=== PATIENT | male | born 1950 | race Caucasian/White ===

== ENCOUNTER → 2019-10-14 | Outpatient (CLI) | payer OTHER ==
[2019-10-14 09:54] LABS: HEMATOCRIT 37.2 % (42.0-52.0); HEMOGLOBIN 12.7 gm/dL (14.0-18.0); MCH 30.3 pg (26.0-34.0); MCHC 34.2 g/dL (28.0-37.0); MCV 88.8 fL (80.0-100.0); MPV 6.6 fl. (7.2-11.1); RBC 4.19 mil/uL (4.50-6.00); RDW-CV 13.5 % (10.5-14.5); WBC 10.1 thou/uL (4.0-11.0)
[2019-10-14 10:04] LABS: CALCIUM 8.6 mg/dL (8.5-10.1); CREATININE 0.9 mg/dL (0.6-1.3); POTASSIUM 4.6 mmol/L (3.5-5.1)
[2019-10-15 02:06] LABS: GLYCOHEMOGLOBIN (HGB A1C) 6.4 % (4.8-5.6)
== END ==
LOC: M.WC 02:25
PROVIDERS: Surgery
DX: L89.893 Pressure ulcer of other site, stage 3 (principal); L03.031 Cellulitis of right toe; G60.3 Idiopathic progressive neuropathy; E66.9 Obesity, unspecified; I48.21 Permanent atrial fibrillation; I10 Essential (primary) hypertension; I48.91 Unspecified atrial fibrillation; J43.9 Emphysema, unspecified; M19.90 Unspecified osteoarthritis, unspecified site; Z95.5 Presence of coronary angioplasty implant and graft; Z87.891 Personal history of nicotine dependence; Z79.899 Other long term (current) drug therapy

== ENCOUNTER → 2019-10-19 | Outpatient (CLI) | payer OTHER | LOC: M.LAB 10-14 09:17 → M.MRI 12:07 | DX: M86.8X7 Other osteomyelitis, ankle and foot (principal) ==

== ENCOUNTER → 2019-10-21 | Outpatient (CLI) | payer OTHER | LOC: M.WC 01:35 | DX: L89.893 Pressure ulcer of other site, stage 3 (principal); L03.031 Cellulitis of right toe; L84 Corns and callosities; M86.171 Other acute osteomyelitis, right ankle and foot; E66.9 Obesity, unspecified; G60.3 Idiopathic progressive neuropathy; I48.21 Permanent atrial fibrillation; I10 Essential (primary) hypertension; J43.9 Emphysema, unspecified; R73.03 Prediabetes; M19.90 Unspecified osteoarthritis, unspecified site; Z87.891 Personal history of nicotine dependence ==

== ENCOUNTER → 2019-10-28 | Outpatient (CLI) | payer OTHER ==
--- NOTE | 2019-10-29 12:23 | CON ---
[address] [address] CONSULTATION Name: MAXINE KEATING JR Room: [facility].#: [id number] Admission: 10/28/19 Attend Phys: Ramez Hadley DPM Discharge: Date of : 50 Report #: [id number] THIS REPORT FOR: //name// cc: Dorothy Pena MD, Ghazal A. MD ~ THIS REPORT FOR: //name// CC: Ramez Pena DATE OF SERVICE: 10/28/2019 INFECTIOUS DISEASE CONSULTATION REFERRING PHYSICIAN: Dr. Osorio. REASON FOR EVALUATION: Right second toe chronic wound with suspicion of distal phalangeal osteomyelitis. HISTORY OF PRESENT ILLNESS: Chart reviewed, the patient examined. This is a 69-year-old gentleman with a fairly significant medical history, has advanced lung disease, ongoing requirement for supplemental oxygen. Does have peripheral neuropathy, which he attributes to exposure to chemicals in [place]. Denies any history of diabetes mellitus. He notes over the course of the last 5-6 weeks, he has had issues with his right second toe. It is not clear to him when he developed the ulcer over the distal plantar aspect. It is notable he has a hammertoe. He said at various times, it became more erythematous, does not have a cyclical pattern; however, more recently it was more intense. He did experience some shooting type pains. It is not clear if he had any fevers or systemic illness. Appetite has generally been good. He underwent evaluation in 2-3 weeks. Culture with growth of Staphylococcus aureus was not actually resistant. Also MRI raised question of acute osteomyelitis involving the distal aspect of the right second toe. He was started on therapy with trimethoprim-sulfamethoxazole, which he has been on at least a couple of weeks. ALLERGIES: None known. MEDICINES: Include Bactrim-DS 1 p.o. b.i.d., Ativan 1 mg at bedtime, Spiriva, atorvastatin 40 mg daily, losartan 25 mg daily, albuterol sulfate inhalation solution via nebulizer, also uses inhaler as well as required Breo-Ellipta, metoprolol, Cialis, prednisone 10 mg as directed, Percocet, cyclobenzaprine, vitamin D. PAST MEDICAL HISTORY: As described above. 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 [address] CONSULTATION Name: MAXINE KEATING Room: [facility]#: [id number] Admission: 10/28/19 Attend Phys: Ramez Hadley DPM Discharge: Date of : 50 Report #: [id number] SOCIAL AND FAMILY HISTORY: Available in chart. REVIEW OF SYSTEMS: As above. PHYSICAL EXAMINATION: GENERAL: He is pleasant, alert and cooperative. He is chronically ill-appearing, mildly undernourished. He is in gkve-po-kubiebiz distress. VITAL SIGNS: Stable. HEENT: Normocephalic. Extraocular muscles intact. Does have nasal cannula oxygen in place. NECK: Supple. LUNGS: Breathing is nonlabored. EXTREMITIES: Right lower extremity has a hammertoe involving the second distal site. There is associated callus, does have an ulceration. On probing per Dr. Hadley, there does not seem to be a direct communication with the bone. The appearance superficially is not one of significant inflammation. ASSESSMENT AND PLAN: Chronic toe wound. Certainly, I think the evidence is mixed. There was discussion about possible partial toe amputation, which patient, I think, was favoring. I think that is a reasonable approach. We have to clarify the degree of vascular insufficiency at this point. We will try to optimize his nutritional status. Again, we will continue the antibiotics. We will have to follow with labs perhaps next week. Discussed with the patient's spouse. <ELECTRONICALLY SIGNED> By: Kosta Jernigan MD 10/29/19 1223 1540 [id number] Jernigan MD /nt
== END ==
LOC: M.WC 00:21
DX: L89.893 Pressure ulcer of other site, stage 3 (principal); L03.031 Cellulitis of right toe; L84 Corns and callosities; M86.171 Other acute osteomyelitis, right ankle and foot; E66.9 Obesity, unspecified; G60.3 Idiopathic progressive neuropathy; G62.9 Polyneuropathy, unspecified; R73.03 Prediabetes; I48.21 Permanent atrial fibrillation; I10 Essential (primary) hypertension; M19.90 Unspecified osteoarthritis, unspecified site; J43.9 Emphysema, unspecified; Z68.32 Body mass index [BMI] 32.0-32.9, adult; Z87.891 Personal history of nicotine dependence

== ENCOUNTER → 2019-11-04 | Outpatient (CLI) | payer OTHER ==
[~2019-11-04] MED LIST: ALBUTEROL2.5 MG/31 INH; ASA81BEC PO; B COMPLEX1 EACH PO; BACTRIM DS TAB1 EAC1 PO; BREO ELLIPTA 11 EACH INH; BREO ELLIPTA 21 EACH INH; CLARITIN10 MG PO; COZAAR 25 MG TA25 M2 PO; GLUCOSAMINE &1 EACH PO; LIPITOR40 MG PO; LOPRESSOR25 PO; LYRICA 75 MG CA75 MG PO; MUCINEX600 MG PO; ONCE DAILY1 EAC1 PO; PERCOCET 5-3251 EACH PO; POTASSIUM99 M1 PO; PROAIR RESPICL90 MCG INH; SINGULAIR 10 MG10 M1 PO; SPIRIVA18 MCG INH; TYLENOL325 M1 PO
[2019-11-04 15:49] LABS: HEMATOCRIT 34.8 % (42.0-52.0); HEMOGLOBIN 11.9 gm/dL (14.0-18.0); MCH 30.2 pg (26.0-34.0); MCHC 34.2 g/dL (28.0-37.0); MCV 88.3 fL (80.0-100.0); MPV 6.9 fl. (7.2-11.1); RBC 3.94 mil/uL (4.50-6.00); RDW-CV 13.9 % (10.5-14.5); WBC 8.6 thou/uL (4.0-11.0)
[2019-11-04 15:59] LABS: CALCIUM 8.8 mg/dL (8.5-10.1); CREATININE 0.8 mg/dL (0.6-1.3); POTASSIUM 4.9 mmol/L (3.5-5.1)
[2019-11-04 16:03] LABS: ALBUMIN 3.7 g/dL (3.4-5.0); TOTAL BILIRUBIN 0.4 mg/dL (<0.1-1.0); TOTAL PROTEIN 6.6 g/dL (6.4-8.2)
--- NOTE | 2019-11-05 12:41 | CON ---
[address] [address] CONSULTATION Name: MAXINE KEATING JR Room: [facility].#: [id number] Admission: 11/04/19 Attend Phys: Ramez Hadley DPM Discharge: Date of : 50 Report #: [id number] THIS REPORT FOR: //name// cc: Dorothy Pena MD, Ghazal A. MD ~ THIS REPORT FOR: //name// CC: Ramez Pena DATE OF SERVICE: 11/04/2019 INFECTIOUS DISEASE CONSULTATION FOLLOWUP ATTENDING PHYSICIAN: Ramez Hadley DPM HISTORY OF PRESENT ILLNESS: He is here for a chronic ulcer involving the right distal plantar aspect of his second toe, it is notable as hammer toe deformity. Denies any significant localizing signs or symptoms. He has not been systemically ill. Based on previous evaluation, there was a concern about some distal tuft osteomyelitis. On examination, the wound post-debridement shows no evidence of communication with the bone. Only mild degree of inflammation superficially. Of note, he has been on trimethoprim-sulfamethoxazole based on cultures for the last couple of weeks without apparent adverse drug effect. ASSESSMENT AND PLAN: Chronic ulceration involving the distal plantar aspect of his right second toe, apparently is favoring amputation of the site. I think this is unreasonable. In the interim, perhaps will happen next week. We will continue the antibiotics. We will check labs today to confirm lack of developing adverse drug effects. We will see him in 2 weeks. <ELECTRONICALLY SIGNED> By: Kosta Jernigan MD 11/05/19 1241 0845 [id number] Jernigan MD /nt
== END ==
LOC: M.ULTRA 02:14
PROVIDERS: Podiatrist Foot & Ankle Surgery
DX: E11.621 Type 2 diabetes mellitus with foot ulcer (principal); L89.893 Pressure ulcer of other site, stage 3; L97.512 Non-pressure chronic ulcer of other part of right foot with fat layer exposed; L03.031 Cellulitis of right toe; L84 Corns and callosities; B35.1 Tinea unguium; E11.69 Type 2 diabetes mellitus with other specified complication; M86.171 Other acute osteomyelitis, right ankle and foot; E11.42 Type 2 diabetes mellitus with diabetic polyneuropathy; E66.9 Obesity, unspecified; I48.21 Permanent atrial fibrillation; I10 Essential (primary) hypertension; J43.9 Emphysema, unspecified; M19.90 Unspecified osteoarthritis, unspecified site; Z87.891 Personal history of nicotine dependence; Z68.32 Body mass index [BMI] 32.0-32.9, adult

== ENCOUNTER → 2019-11-11 | Day surgery (SDC) | payer OTHER ==
[2019-11-11 13:38] LABS: HEMATOCRIT 37.2 % (42.0-52.0); HEMOGLOBIN 12.6 gm/dL (14.0-18.0); MCH 29.9 pg (26.0-34.0); MCHC 33.8 g/dL (28.0-37.0); MCV 88.4 fL (80.0-100.0); MPV 7.1 fl. (7.2-11.1); RBC 4.21 mil/uL (4.50-6.00); WBC 10.1 thou/uL (4.0-11.0)
[2019-11-11 13:53] LABS: CALCIUM 8.3 mg/dL (8.5-10.1); CREATININE 0.9 mg/dL (0.6-1.3); POTASSIUM 4.5 mmol/L (3.5-5.1)
[2019-11-11 13:58] LABS: TOTAL BILIRUBIN 0.3 mg/dL (<0.1-1.0)
--- NOTE | 2019-11-11 16:52 | EKG ---
[place] [address] ELECTROCARDIOGRAM REPORT Name: MAXINE KEATING JR Room: [facility].#: [id number] Admission: 11/11/19 Attend Phys: Russell Guardado Discharge: Date of : 50 Date of Service: 11/11/191329 Report #: [id number] THIS REPORT FOR: //name// [facility] Test Date: 2019-11-11 Test Time: 13:30:30 Pat Name: MAXINE KEATING Department: Room: Gender: Outbound Sales Consultant: : 1950 Requested By: Ramez Hadley Order Number: [id number] MD: Jimbo Mullins Measurements Intervals [place] Rate: 91 P: CT: QRS: 7 QRSD: 94 T: 43 QT: 372 QTc: 458 Interpretive Statements Atrial fibrillation Low voltage, extremity leads No previous ECG available for comparison Electronically Signed On 11-11-2019 16:51:49 [employer] by Jimbo Mullins [email or web address] <ELECTRONICALLY SIGNED> By: Jimbo Mullins MD, [facility] 11/11/19 165 29 Jimbo Mullins MD, FACC /EPI
--- NOTE | 2019-11-16 16:07 | PATH ---
[facility] [address] [place] [address] PATHOLOGY RPT PROCEDURE Name: CB MONDRAGON Room: [facility].R.#: [id number] Admission: 11/11/19 Date of : 50 Discharge: Report #: [id number] Path Case #: [id number] [facility] Accession Number: [id number] . 01 Material submitted: . toe - RIGHT SECOND TOE. Modifiers: right, second . 01 Clinical history: . Osteomyelitis. . 02 Diagnosis: Right second toe: - Benign toe with ulceration of nailbed, underlying acute and chronic inflammation of soft tissues in association with embedded foreign material suggesting wood splinter and with osteomyelitis of distal phalanx. - Proximal distal articulation margin free of osteomyelitis. . (NATE:genie; 11/16/2019) QL 11/16/2019 1044 Local . 02 Electronically signed: . Abdelrahman Birmingham MD, Pathologist NPI- [id number] . 01 Gross description: . Received in formalin labeled "Cb Mondragon Jr., right second toe" is a toe disarticulation specimen measuring 5.2 x 2.7 x 2.3 cm. The distal aspect displays a yellow-landa possible nail bed measuring 1.4 x 1.2 cm, which is located 2.7 cm from the skin and soft tissue resection margin and 4.7 cm from the bone disarticulation. The nail bed appears possibly ulcerated, and no additional lesions are identified upon the specimen. The resection margin is inked black. The specimen is sectioned to reveal possible involvement of the distal phalanx by the nail bed ulceration. A commercial pest control representative cross-section is submitted in cassette A1-A3 following decalcification. ([facility] [place]; 11/12/2019) [facility] 11/12/2019 1632 Local . 02 Pathologist provided ICD-10: L97.519, M79.89 . 02 CPT . 889363, 434929 Specimen Comment: A courtesy copy of this report has been sent to [phone] Specimen Comment: [id number] Specimen Comment: Report sent to / DR PERES Performed at: [address] [place] [address] PATHOLOGY RPT PROCEDURE Name: CB MONDRAGON JR Room: [facility].#: [id number] Admission: 11/11/19 Date of : 50 Discharge: Report #: [id number] Path Case #: [id number] [address] [facility] [address], [place] [id number] MD Chapin Stokes MD Phone: [phone] Performed at: 02 [facility] [address], [place], [place] [id number] MD Abdelrahman Birmingham MD Phone: [phone]
--- NOTE | 2019-11-18 13:19 | OP ---
[address] [address] OPERATIVE REPORT Name: MAXINE KEATING JR Room: [facility].#: [id number] Admission: 11/11/19 Attend Phys: Ramez Hadley DPM Discharge: Date of : 50 Report #: [id number] THIS REPORT FOR: //name// cc: Dorothy Pena MD, Ghazal A. MD ~ THIS REPORT FOR: //name// CC: Ramez Pena DATE OF SERVICE: 11/11/2019 SURGEON: Ramez Hadley DPM. PREOPERATIVE DIAGNOSIS: Ulceration with hammertoe deformity and possible osteomyelitis to the right second toe. POSTOPERATIVE DIAGNOSIS: Ulceration with hammertoe deformity and possible osteomyelitis to the right second toe. PROCEDURES: 1. Amputation, right second toe at MTP joint with primary closure. 2. Incision and drainage, right foot. ANESTHESIA: MAC. INJECTABLES: 22 mL of a 1:1 mixture of 0.5% Marcaine plain and 1% lidocaine plain. ESTIMATED BLOOD LOSS: None. HEMOSTASIS: Right ankle pneumatic tourniquet at 250 mmHg. SPECIMENS: Right second toe. SUTURES: 3-0 nylon. COMPLICATIONS: None. DESCRIPTION OF PROCEDURE: The patient brought to the OR and placed on the table supine with induction of MAC anesthesia. A well-padded ankle pneumatic tourniquet was placed. A local anesthetic block was given and the extremity was prepped and draped aseptically. The foot was exsanguinated with inflation of the tourniquet, the right second toe was disarticulated at the MTP joint and the skin was remodeled. Electrocautery was utilized for intraoperative hemostasis and extensor and flexor tendons were transected within the [place] [address] OPERATIVE REPORT Name: MAXINE KEATING JR Room: [facility]#: [id number] Admission: 11/11/19 Attend Phys: Ramez Hadley DPM Discharge: Date of : 50 Report #: [id number] flushed with sterile saline, dried and skin was closed with 3-0 nylon in simple interrupted fashion. The second toe was sent for surgical pathology. Sterile compressive bandage with Aquacel Ag, fluffs, Kerlix and Miguel Ángel were applied. The patient left the OR alert and oriented with no pain or complications noted. <ELECTRONICALLY SIGNED> By: Ramez Hadley DPM 11/18/19 1319 1625 1725Ramez Hadley DPM /maged
== END | disposition home or self-care (01) ==
LOC: M.SUR 13:04
PROVIDERS: Podiatrist Foot & Ankle Surgery
DX: M86.8X7 Other osteomyelitis, ankle and foot (principal); M20.41 Other hammer toe(s) (acquired), right foot; L97.819 Non-pressure chronic ulcer of other part of right lower leg with unspecified severity; M79.89 Other specified soft tissue disorders; M79.5 Residual foreign body in soft tissue; Z98.890 Other specified postprocedural states; Z79.899 Other long term (current) drug therapy; Z88.2 Allergy status to sulfonamides; Z79.82 Long term (current) use of aspirin

== ENCOUNTER → 2019-11-18 | Outpatient (CLI) | payer OTHER ==
[2019-11-18 15:47] LABS: ABSOLUTE BASOPHILS 0.1 thou/uL (0.0-0.2); ABSOLUTE EOSINOPHILS 0.1 thou/uL (0.0-0.7); ABSOLUTE MONOCYTES 1.1 thou/uL (0.0-1.2); ABSOLUTE NEUTROPHILS 7.6 thou/uL (1.6-8.1); BASOPHILS 1.2 %; EOSINOPHILS 0.6 %; HEMATOCRIT 39.4 % (42.0-52.0); HEMOGLOBIN 13.3 gm/dL (14.0-18.0); LYMPHOCYTES 17.9 %; MCHC 33.8 g/dL (28.0-37.0); MCV 88.8 fL (80.0-100.0); MONOCYTES 10.2 %; NUCLEATED RBCS 0 /100WBC; PLATELET COUNT* 260 thou/uL (150-400); POLYS 70.1 %; RBC 4.44 mil/uL (4.50-6.00); RDW-CV 14.4 % (10.5-14.5); WBC 10.9 thou/uL (4.0-11.0)
[2019-11-18 16:08] LABS: ALBUMIN 4.1 g/dL (3.4-5.0); CALCIUM 8.9 mg/dL (8.5-10.1); CREATININE 0.9 mg/dL (0.6-1.3); POTASSIUM 4.8 mmol/L (3.5-5.1); TOTAL BILIRUBIN 0.4 mg/dL (<0.1-1.0); TOTAL PROTEIN 7.4 g/dL (6.4-8.2)
[2019-11-18 16:49] LABS: ESR (SEDRATE) 10 mm/hr (0-20)
--- NOTE | 2019-11-19 12:42 | CON ---
[address] [address] CONSULTATION Name: MAXINE KEATING Room: [facility].#: [id number] Admission: 11/18/19 Attend Phys: Ramez Hadley DPM Discharge: Date of : 50 Report #: [id number] THIS REPORT FOR: //name// cc: Dorothy Pena MD, Ghazal A. MD ~ THIS REPORT FOR: //name// CC: Ramez Pena DATE OF SERVICE: 11/18/2019 The patient [facility]. HISTORY OF PRESENT ILLNESS: Chart reviewed, patient examined. He returns today having had right second toe amputation in the interim since his last visit. This was confirmed to show evidence of osteomyelitis involving the distal aspect of the phalange. The margins were free. Generally, he has been feeling fairly well. Denies any systemic illness. PHYSICAL EXAMINATION: The site appears well approximated. There is no drainage. There is only mild degree of inflammation noted. Really no tenderness. ASSESSMENT AND PLAN: Chronic osteomyelitis. At this point, we would extend the antibiotics. He has been on trimethoprim and sulfamethoxazole. Did have some repeat labs apparently at the time of surgery, which were adequate. We will repeat those on a weekly basis for at least the next couple of weeks. Anticipate that may well be the extent of the treatment. Continue wound care as prescribed. I will see him in 2 weeks. <ELECTRONICALLY SIGNED> By: Kosta Jernigan MD 11/19/19 1242 0848 [id number] Jernigan MD /nt
== END ==
LOC: M.WC 14:00
PROVIDERS: Podiatrist Foot & Ankle Surgery
DX: T87.89 Other complications of amputation stump (principal); L89.893 Pressure ulcer of other site, stage 3; L03.031 Cellulitis of right toe; L84 Corns and callosities; B35.1 Tinea unguium; E11.40 Type 2 diabetes mellitus with diabetic neuropathy, unspecified; E11.69 Type 2 diabetes mellitus with other specified complication; M86.171 Other acute osteomyelitis, right ankle and foot; G62.9 Polyneuropathy, unspecified; G60.3 Idiopathic progressive neuropathy; E66.9 Obesity, unspecified; I10 Essential (primary) hypertension; I48.91 Unspecified atrial fibrillation; I48.21 Permanent atrial fibrillation; J43.9 Emphysema, unspecified; M19.90 Unspecified osteoarthritis, unspecified site; Z87.891 Personal history of nicotine dependence; Y83.5 Amputation of limb(s) as the cause of abnormal reaction of the patient, or of later complication, without mention of misadventure at the time of the procedure

== ENCOUNTER → 2021-03-10 | Outpatient (CLI) | payer OTHER | LOC: M.ULTRA 12:37 | PROVIDERS: ATTEND Podiatrist Foot & Ankle Surgery | DX: I73.9 Peripheral vascular disease, unspecified (principal) ==